=== PATIENT | female | born 1940 | race Caucasian/White ===

== ENCOUNTER 2016-04-22 07:37 | Emergency (ER) | payer MEDICARE ==
--- NOTE | 2016-04-22 08:00 | ED.PDOC ---
History of Present Illness - General Chief Complaint: GI Problem Stated Complaint: vomiting, fever Time Seen by Provider: 04/22/16 07:52 Source: patient, RN notes reviewed, Vital Signs reviewed Exam Limitations: no limitations - History of Present Illness Initial Comments: Ms. Hercules 76 y/o f with history of hypertension and thyroid disorder stated she was apparently well until 3 days ago when she had started having on and off n/v,no diarrhea no abdominal pain. No ill contact. No bowel movement for 3 days. Timing/Duration: other - 3 days ago Severity: moderate Improving Factors: nothing Worsening Factors: nothing Associated Symptoms: fever/chills Allergies/Adverse Reactions: Allergies NO KNOWN ALLERGY Allergy (Verified 04/22/16 07:56) Home Medications: Ambulatory Orders Benazepril HCl [Lotensin] 20 mg PO DAILY 04/22/16 Hydrochlorothiazide 25 mg PO DAILY 04/22/16 Levothyroxine Sodium [Levoxyl] 100 mcg PO DAILY 04/22/16 Nifedipine [Nifedipine ER] 60 mg PO DAILY 04/22/16 Review of Systems - Review of Systems Constitutional: States: chills, fever EENTM: States: no symptoms reported Respiratory: States: no symptoms reported Cardiology: States: no symptoms reported Gastrointestinal/Abdominal: States: see HPI, vomiting Genitourinary: States: no symptoms reported Endocrine: States: no symptoms reported, intolerance to heat Past Medical History (General) - Patient Medical History Hx Stroke: No Hx Congestive Heart Failure: No Hx Hypertension: Yes Hx Thyroid Disease: Yes Hx Diabetes: Yes Hx MRSA: No Surgical History: cholecystectomy Other Surgeries:: hysterectomy - Vaccination History Hx Influenza Vaccination: No Hx Pneumococcal Vaccination: No - Social History Hx Tobacco Use: No - Activities of Daily Living Patient Lives Alone: No Grooming Ability: Independent Eating (Feeding) Ability: Independent Toileting Ability: Independent - Female History Patient is a Female of Child Bearing Age (10 -59 yrs old): No Family Medical History - Family History Mother Living Status: Hx Family Diabetes: Yes - multiple family members Hx Family Cancer: Yes - breast-sister Physical Exam - Physical Exam General Appearance: Alert, Comfortable, No apparent distress Eye Exam: bilateral normal Ears, Nose, Throat: hearing grossly normal, normal ENT inspection, normal pharynx Neck: non-tender, full range of motion, supple Respiratory: chest non-tender, lungs clear, normal breath sounds, no respiratory distress Cardiovascular/Chest: normal peripheral pulses, regular rate, rhythm, no edema, no gallop, no JVD, no murmur Peripheral Pulses: radial,right: 2+ Gastrointestinal/Abdominal: normal bowel sounds, soft, no organomegaly, distended - not tense;ventral hernia with midline and ruq old surgical scars, tenderness - lower abdomen no peritoneal signs Back Exam: normal inspection, no CVA tenderness, no vertebral tenderness Extremity: normal range of motion, non-tender, normal inspection Neurologic: cane pusher II-XII nml as tested, no motor/sensory deficits, alert, normal mood/affect, oriented x 3 Skin Exam: normal color, warm/dry, cyanosis Lymphatic: no adenopathy, axilla node tender (R) Progress - Results/Orders Results/Orders: 04/22/16 08:01 URINALYSIS Stat 04/22/16 08:30 CBC (AUTOMATED) W/AUTO DIFF Stat DIFFERENTIAL,MANUAL BY FLAGS Stat Laboratory Results WBC 22.3 K/mm3 (4.8-10.8) H* 04/22/16 08:30 RBC 5.79 M/mm3 (4.20-5.40) H 04/22/16 08:30 Hgb 16.0 gm/dL (12.0-16.0) 04/22/16 08:30 Hct 49.3 % (36.0-47.0) H 04/22/16 08:30 MCV 85.2 fl (81.0-99.0) 04/22/16 08:30 MCH 27.6 pg (27.0-31.0) 04/22/16 08:30 MCHC 32.5 g/dL (33.0-37.0) L 04/22/16 08:30 RDW 14.7 % (11.5-14.5) H 04/22/16 08:30 Plt Count 283 K/mm3 (130-400) 04/22/16 08:30 MPV 9.6 fl (7.40-10.4) 04/22/16 08:30 Absolute Neuts (auto) 20.30 K/uL (1.8-6.8) H 04/22/16 08:30 Absolute Lymphs (auto) 1.00 K/uL (1.0-3.4) 04/22/16 08:30 Absolute Monos (auto) 0.90 K/uL (0.2-0.8) H 04/22/16 08:30 Absolute Eos (auto) 0.00 K/uL (0.0-0.4) 04/22/16 08:30 Absolute Basos (auto) 0.10 K/uL (0.0-0.1) 04/22/16 08:30 Neutrophils % 91.0 % (42.0-78.0) H 04/22/16 08:30 Lymphocytes % 4.4 % (20.0-50.0) L 04/22/16 08:30 Monocytes % 3.9 % (2.0-9.0) 04/22/16 08:30 Eosinophils % 0.1 % (1.0-5.0) L 04/22/16 08:30 Basophils % 0.6 % (0.0-2.0) 04/22/16 08:30 Sodium 135 mmol/L (135-145) 04/22/16 08:01 Potassium 3.3 mmol/L (3.6-5.0) L 04/22/16 08:01 Chloride 96 mmol/L (101-111) L 04/22/16 08:01 Carbon Dioxide 28 mmol/L (21-31) 04/22/16 08:01 Anion Gap 14.3 (12-18) 04/22/16 08:01 BUN 26 mg/dL (7-18) H 04/22/16 08:01 Creatinine 0.81 mg/dL (0.6-1.3) 04/22/16 08:01 BUN/Creatinine Ratio 32.1 (10-20) H 04/22/16 08:01 Random Glucose 176 mg/dL (70-105) H 04/22/16 08:01 Serum Osmolality 279.2 mOsm/L (275-295) 04/22/16 08:01 Lactic Acid 2.1 mmol/L (0.5-2.2) 04/22/16 08:06 Calcium 9.2 mg/dL (8.4-10.2) 04/22/16 08:01 Total Bilirubin 0.8 mg/dL (0.2-1.0) 04/22/16 08:01 AST 37 IU/L (10-42) 04/22/16 08:01 ALT 18 IU/L (10-60) 04/22/16 08:01 Alkaline Phosphatase 48 IU/L (42-121) 04/22/16 08:01 Serum Total Protein 7.5 gm/dL (6.4-8.2) 04/22/16 08:01 Albumin 4.2 g/dl (3.2-5.5) 04/22/16 08:01 Globulin 3.3 gm/dL (2.3-3.5) 04/22/16 08:01 Albumin/Globulin Ratio 1.3 (1.1-1.9) 04/22/16 08:01 Lipase 25 U/L (22-51) 04/22/16 08:01 04/22/16 07:50 Temperature 98.7 F Pulse Rate [ 72 Left Radial] Respiratory 20 Rate Blood Pressure 166/103 [Right Arm] O2 Sat by Pulse 94 L Oximetry AAS- air filled dilated loops of small bowel mid abdomen suspicious of sbo or ileus; Flu pcr-negative;CT abdomen/pelvisTwo vental hernias contains bowel cause of proximal bowel obstruction. Departure - Departure Clinical Impression: Small intestine obstruction, Ventral hernia with bowel obstruction Adrenal adenoma Qualifiers: Laterality: unspecified laterality Qualifier Code: (D35.00) Benign neoplasm of unspecified adrenal gland Time of Disposition: 11:22 - D/W Dr. Winston Workman- [facility] Disposition: Transfer to Hospital Condition: Good Departure Forms: ED Discharge - Pt. Copy, Patient Portal Self Enrollment Referrals: JANE JEONG DO [Primary Care Provider] - 1-2 Weeks Home Medications: Ambulatory Orders Benazepril HCl [Lotensin] 20 mg PO DAILY 04/22/16 Hydrochlorothiazide 25 mg PO DAILY 04/22/16 Levothyroxine Sodium [Levoxyl] 100 mcg PO DAILY 04/22/16 Nifedipine [Nifedipine ER] 60 mg PO DAILY 04/22/16
[2016-04-22] MEDS ORDERED: ONDANSETRON INJ 4 MG/2 ML VIAL IV ONE ×2 (08:01→09:50)
--- NOTE | 2016-04-22 08:51 | RAD ---
EXAM DESCRIPTION: XR ABDOMEN 2 VIEWS SUPINE ERECT CLINICAL HISTORY: vomiting COMPARISON: None. FINDINGS: AP supine and upright views of the abdomen show a nonspecific, nonobstructive bowel gas pattern with no evidence for free intraperitoneal air. Surgical clips from cholecystectomy are seen. There are air-filled dilated loops of small bowel in the central abdomen. There is some air in stool in the hepatic flexure of the colon. Air densities overlying the left lower quadrant soft tissue lateral to the osseous structures is seen. No obvious organomegaly is seen. No abnormal calcifications are seen in the expected location of the renal collecting systems. Single view of the chest shows cardiac silhouette and pulmonary vasculature to be within normal limits. Lungs are normally aerated and clear. Moderate calcifications and mild ectasia of the thoracic aortic arch are seen. Severe disc degenerative changes of the lumbar spine are noted. IMPRESSION: Air-filled dilated loops of small bowel in the central abdomen are suspicious for at least partial small bowel obstruction versus ileus. Air densities in the soft tissue lateral to the osseous structures in the left lower abdomen to pelvis could represent large pannus versus possible abdominal wall hernia. Correlate clinically. Electronically signed by: Augustus Shipman MD 04/22/2016 08:50
[2016-04-22] MEDS ORDERED: SODIUM CHLORIDE 0.9% 500ML 500 ML IVS ONE (09:28)
--- NOTE | 2016-04-22 10:28 | CT ---
EXAM DESCRIPTION: CT ABDOMEN PELVIS WITHOUT IV CONTRAST CLINICAL HISTORY: vomiting COMPARISON: None. TECHNIQUE: Transaxial images were obtained without intravenous or oral contrast media. Sagittal and coronal reconstruction was performed. FINDINGS: The lung bases are clear. Coronary artery calcification is observed. Mild hepatic steatosis is observed. The gallbladder is been previously removed. Surgical clips are seen in the region of the gallbladder fossa. A 1.75 cm in diameter left adrenal mass is observed. A 2nd fatty mass is observed along the inferior aspect of the left adrenal gland measuring 3.3 cm in diameter. Its appearance is consistent with adrenal adenoma. No right adrenal masses are detected. A central ventral hernia is observed containing fat. It has a wide-mouth. A 2nd ventral hernia is observed inferior to the umbilicus. It contains bowel and fat. Exam reveals some distention of the stomach and proximal small bowel. There is narrowing of a loop of small bowel at the level of the inferior ventral hernia surgical ryan are observed in the region of the hernia. No free fluid is observed in the pelvis. The patient is post hysterectomy. Diverticulosis of the colon is observed without evidence of diverticulitis. Imaging of the kidneys reveals no evidence of hydronephrosis mass cyst or calcification. IMPRESSION: 1. Two ventral hernias are observed. The more inferior ventral hernia contains bowel and is felt to be the cause of a proximal small bowel obstruction. 2. Cholecystectomy. 3. Hepatic steatosis. 4. 2 left adrenal mass is are observed. One is larger and consistent with an adrenal adenoma. The smaller of the 2 could be evaluated with pre and post-contrast CT or magnetic resonance imaging. 5. Uncomplicated diverticulosis. 6. Hysterectomy Electronically signed by: Carroll Briggs MD 04/22/2016 10:26
[2016-04-22 12:29] VITALS: TEMP 99.5
--- NOTE | 2016-04-22 13:13 | RAD ---
EXAM DESCRIPTION: XR CHEST 1 VIEW CLINICAL HISTORY: post ng insertion COMPARISON: 22 April 2016. TECHNIQUE: AP portable chest FINDINGS: A poor inspiratory effect is observed. Nasogastric tube is seen to traverse the chest. The distal tip is observed in the region of the body of the stomach. The heart is within the range of normal. No pleural fluid is seen. Degenerative changes are seen in the thoracic spine. IMPRESSION: A nasogastric tube is seen to traverse the chest with the distal tip in the region the body of the stomach. Electronically signed by: Carroll Briggs MD 04/22/2016 13:11
[2016-04-22 14:00] VITALS: BP 145/83; O2SAT 94
== END 2016-04-22 13:55 | disposition short-term general hospital (02) ==
LOC: ER 07:37
DX: K43.6 Other and unspecified ventral hernia with obstruction, without gangrene (principal); D35.00 Benign neoplasm of unspecified adrenal gland; I10 Essential (primary) hypertension; E11.9 Type 2 diabetes mellitus without complications; E07.9 Disorder of thyroid, unspecified; Z79.899 Other long term (current) drug therapy
CPT/HCPCS: 36415; 71010; 74020; 74176; 80053; 83605; 83690; 85025; 87040; 87804; J2405; J7040

== ENCOUNTER 2016-04-26 18:53 | Emergency (ER) | payer MEDICARE ==
--- NOTE | 2016-04-26 19:12 | ED.PDOC ---
History of Present Illness - General Chief Complaint: Abdominal Pain Stated Complaint: Abd pain with nausea and vomiting Time Seen by Provider: 04/26/16 18:54 Information Source: patient, RN notes reviewed, Vital Signs reviewed, family, old records Exam Limitations: no limitations - History of Present Illness Initial Comments: Patient started again with abd pain and vomiting about 2pm today. She was seen here on 04/22/16 and diagnosed with a SBO. She was transferred to [facility] for further management. Reports her pain, nausea and vomiting improved. She was tolerating liquids and having bowel movements. She was discharged from the hospital around noon today. Abdominal Pain Onset Location: generalized abdomen, flank Pain Radiation: no radiation Quality: severe, cramping, sharpness, waxing/waning Timing/Duration: 1-3 hours Improving Factors: nothing Worsening Factors: nothing Associated Symptoms: back pain, fatigue, nausea/vomiting Review of Systems - Review of Systems Constitutional: States: malaise. Denies: chills, diaphoresis, fever EENTM: States: no symptoms reported Respiratory: States: no symptoms reported Cardiology: States: no symptoms reported Gastrointestinal/Abdominal: States: see HPI, abdominal pain, nausea, vomiting Genitourinary: States: no symptoms reported Musculoskeletal: States: back pain Skin: States: no symptoms reported Neurological: States: no symptoms reported Endocrine: States: no symptoms reported Past Medical History (General) - Patient Medical History Hx Stroke: No Hx Congestive Heart Failure: No Hx Hypertension: Yes Hx Thyroid Disease: Yes Hx Diabetes: Yes Hx MRSA: No - Vaccination History Hx Influenza Vaccination: No Hx Pneumococcal Vaccination: No - Social History Hx Tobacco Use: No Family Medical History - Family History Mother Living Status: Hx Family Diabetes: Yes - multiple family members Hx Family Cancer: Yes - breast-sister Physical Exam - Physical Exam General Appearance: Alert, No apparent distress, Ill Appearing, Obese, Well Developed, Well Groomed, Well Hydrated, Well Nourished Neck: non-tender, full range of motion, supple, normal inspection Respiratory: chest non-tender, lungs clear, normal breath sounds, no respiratory distress, no accessory muscle use Cardiovascular/Chest: regular rate, rhythm, no edema, no gallop, no JVD, no murmur Gastrointestinal/Abdominal: abnormal bowel sounds - Hyperactive, distended, guarding - in epigastric area, tenderness, other - Lower abd is distended and firm Extremity: normal range of motion, non-tender, normal inspection Neurologic: no motor/sensory deficits, alert, normal mood/affect, oriented x 3 Skin Exam: normal color, warm/dry Lymphatic: no adenopathy Progress - Progress Progress: 04/26/16 21:04 Patient with repeat SBO. with edema and ascites. At risk for perf and ischemia. Discussed with Dr. Narinder fry. transfer back to [facility] for definitive care. Will place NGT Patient and family agree with transfer back to [facility]. 04/26/16 21:06 Awaiting call back from [facility] - Results/Orders Results/Orders: Laboratory Tests 04/26/16 19:15 WBC 12.8 H RBC 4.95 Hgb 13.6 Hct 42.9 MCV 86.6 MCH 27.5 MCHC 31.8 L RDW 14.9 H Plt Count 222 MPV 10.1 Absolute Neuts (auto) 10.90 H Absolute Lymphs (auto) 1.00 Absolute Monos (auto) 0.70 Absolute Eos (auto) 0.10 Absolute Basos (auto) 0.10 Neutrophils % 85.1 H Lymphocytes % 8.0 L Monocytes % 5.4 Eosinophils % 0.8 L Basophils % 0.7 Sodium 140 Potassium 4.7 Chloride 107 Carbon Dioxide 28 Anion Gap 9.7 L BUN 8 Creatinine 0.67 BUN/Creatinine Ratio 11.9 Random Glucose 128 H Serum Osmolality 279.4 Calcium 8.7 Total Bilirubin 0.9 AST 37 ALT 50 Alkaline Phosphatase 46 Serum Total Protein 6.9 Albumin 3.7 Globulin 3.2 Albumin/Globulin Ratio 1.2 - EKG/XRAY/CT CT Ordered: Yes CT Interpretation Call Back: Yes - Per Radiology - repeat SBO at prox ileum w/ edema & ascites. Departure - Departure Clinical Impression: Small intestine obstruction, Ventral hernia with bowel obstruction Time of Disposition: 21:49 Disposition: Transfer to Hospital Condition: Fair Home Medications: Ambulatory Orders Benazepril HCl [Lotensin] 20 mg PO DAILY 04/22/16 Hydrochlorothiazide 25 mg PO DAILY 04/22/16 Levothyroxine Sodium [Levoxyl] 100 mcg PO DAILY 04/22/16 Nifedipine [Nifedipine ER] 60 mg PO DAILY 04/22/16 Amoxicillin & Pot Clavulanate [Augmentin] 875 mg PO BID 04/26/16 Docusate Sodium [Colace Cap] 100 mg PO 04/26/16 Magnesium Hydroxide [Milk Of Magnesia] 1 evin PO 04/26/16 Transfer to Outside Facility - Transfer Information Accepting Provider:: Dr. Nicole Accepting Facility: [facility] Reason for Transfer: specialized care not available
[2016-04-26] MEDS ORDERED: ONDANSETRON INJ 4 MG/2 ML VIAL IV ONE (19:18)
[2016-04-26] MEDS ORDERED: HYDROmorphone HCL INJ 2 MG/ML VIAL IV ONE (20:41)
[2016-04-26 21:49] VITALS: O2SAT 97
[2016-04-26 22:27] VITALS: BP 158/77; TEMP 98.6
--- NOTE | 2016-05-11 00:07 | CT ---
EXAM DESCRIPTION: Abdomen/Pelvis w/Contrast CLINICAL HISTORY: 76 years Female, generalized abd pain, N/V, recent SBO COMPARISON: CT scan of the abdomen and pelvis without contrast dated 04/22/2016. TECHNIQUE: 5 mm axial images through the abdomen and pelvis were performed after the administration of intravenous contrast. Coronal and sagittal reconstructions were obtained. FINDINGS: Similar to the prior study, the stomach is fluid-filled and distended. Loops of small bowel are dilated. An acute transition point occurs within the loop of ileum as it passes into the more ventrally located of the two anterior abdominal wall hernias (axial image 63). The transition point is acute and there is some surrounding edema along with edema and ascites within the large ventral hernia. Multiple loops of ileum reside within the hernia and some of these are distended. The exiting loop is decompressed. No extraluminal gas is seen. A more superiorly located ventral midline hernia contains only fat (image 49). Imaged lungs are clear. Vascular calcifications are present with aortic and marked coronary artery involvement. No pericardial or pleural effusion. Previous cholecystectomy. Postcontrast images of the liver, spleen, RIGHT kidney, RIGHT adrenal gland and atrophic pancreas are unremarkable. Redemonstrated are the two LEFT adrenal gland lesions, the larger of which contains internal fat consistent with a myelolipoma. The smaller measures 2.2 cm in diameter (image 31) with Hounsfield units averaging in the 20s. Delayed images are not available. A 5 mm hypoattenuating lesion in the interpolar region of the LEFT kidney is too small for definitive characterization but has the appearance of a cyst. Noninflamed diverticuli project off the colon. Nonvisualized appendix. No free fluid in the pelvis. No bladder calculus. IMPRESSION: Small bowel obstruction with an acute transition point as a loop of proximal ileum passes into the more inferiorly located ventral hernia. Reactive edema and ascites. Reduction is recommended as the patient is at risk for perforation and venous ischemia. The stomach is also distended suggesting the patient may benefit from placement of a nasogastric tube to suction. LEFT adrenal myolipoma and additional 2.2 cm LEFT adrenal gland lesion, incompletely characterized. If the patient has a known primary malignancy and if clinically indicated, a nonemergent contrast enhanced examination with 10-15 minute delayed images through the adrenal glands can be obtained to differentiate an adenoma from a metastasis. Aortic atherosclerosis and coronary artery disease. Diverticulosis. Fat-containing ventral hernia. Electronically signed by: Evie Royal MD 04/26/2016 8:48 PM FACILITIES DIRECTOR
== END 2016-04-26 22:25 | disposition short-term general hospital (02) ==
LOC: ER 18:53
DX: K43.6 Other and unspecified ventral hernia with obstruction, without gangrene (principal); R11.2 Nausea with vomiting, unspecified; E11.9 Type 2 diabetes mellitus without complications; I10 Essential (primary) hypertension; E07.9 Disorder of thyroid, unspecified
CPT/HCPCS: 74177; 80053; 85025; J1170; J2405

== ENCOUNTER → 2016-07-15 | Outpatient (CLI) | payer MEDICARE | LOC: BFHH 11:46 | PROVIDERS: ATTEND Family Medicine | DX: G72.89 Other specified myopathies (principal); I10 Essential (primary) hypertension; E66.01 Morbid (severe) obesity due to excess calories; Z68.41 Body mass index [BMI] 40.0-44.9, adult; Z48.815 Encounter for surgical aftercare following surgery on the digestive system ==

== ENCOUNTER → 2017-01-01 | Outpatient (CLI) | payer MEDICARE | LOC: BFHH 12:53 | PROVIDERS: ATTEND Family Medicine | DX: E03.9 Hypothyroidism, unspecified (principal) ==

== ENCOUNTER → 2017-06-10 | Outpatient (CLI) | payer MEDICARE | LOC: BFHH 12:41 | PROVIDERS: ATTEND Family Medicine | DX: I10 Essential (primary) hypertension (principal); E03.9 Hypothyroidism, unspecified ==

== ENCOUNTER → 2018-08-30 | Outpatient (CLI) | payer MEDICARE | LOC: LAB.NP 12:15 | PROVIDERS: ATTEND Family Medicine | DX: E03.9 Hypothyroidism, unspecified (principal); I10 Essential (primary) hypertension ==

== ENCOUNTER 2019-03-10 09:07 | Emergency (ER) | payer MEDICARE ==
--- NOTE | 2019-03-10 09:41 | ED.PDOC ---
History of Present Illness - General Chief Complaint: Fever Stated Complaint: fever, weakness Time Seen by Provider: 03/10/19 09:14 Source: patient, RN notes reviewed, Vital Signs reviewed, family Additional Information: Patient presents with family for evaluation of fever, cough and congestion over the past three days. She has had vomiting and diarrhea during this time span. Patient does endorse dysuria, which resolved with increased water intake. She denies any recent sick contacts. Cough has been productive with white sputum. No motrin or tylenol today. Denies recent abx or hospitalizations. She otherwise has been more fatigued. - History of Present Illness Timing/Duration: getting worse Fever Severity/Quality: subjective Fever Therapy EVALUATION SPECIALIST: none Associated Symptoms: cough Review of Systems - Review of Systems Constitutional: States: fever EENTM: States: nose congestion Respiratory: States: cough Cardiology: Denies: chest pain Gastrointestinal/Abdominal: States: diarrhea, nausea, vomiting Genitourinary: States: dysuria Musculoskeletal: Denies: back pain Skin: Denies: rash Neurological: Denies: headache Endocrine: Denies: increased thirst Hematologic/Lymphatic: Denies: anemia Past Medical History (General) - Patient Medical History Hx Stroke: No Hx Congestive Heart Failure: No Hx Hypertension: Yes Hx Thyroid Disease: Yes Hx Diabetes: Yes Hx Gastroesophageal Reflux: Yes Hx MRSA: No - Vaccination History Hx Influenza Vaccination: No Hx Pneumococcal Vaccination: No - Social History Hx Tobacco Use: No Hx Alcohol Use: No Family Medical History - Family History Mother Living Status: Hx Family Diabetes: Yes - multiple family members Hx Family Cancer: Yes - breast-sister Physical Exam - Physical Exam General Appearance: Alert, Comfortable, Well Developed, Well Groomed, Well Hydrated, Well Nourished ENT Exam: nasal congestion Neck: full range of motion, supple, normal inspection, trachea midline Respiratory: lungs clear, normal breath sounds, no respiratory distress, no accessory muscle use Cardiovascular/Chest: normal peripheral pulses, regular rate, rhythm, no edema, no gallop Gastrointestinal/Abdominal: normal bowel sounds, non tender, soft, distended Extremity: normal range of motion, non-tender, normal inspection, no pedal edema 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 Influenza screen was negative. CMP was significant for signs of dehydration with pre-renal azotemia. She was given 500cc bolus of NS. Lactate was WNL. Blood cultures were obtained. She was found to have a leukocytosis, likely from infection vs hemoconcentration. CXR was concerning for possible developing pneumonia.x-ray of the abdomen was concerning for possible small bowel obstruction. CT of the abdomen was obtained and significant for signs of small bowel obstruction. Her previous surgery was in [place]. Patient was discussed with Dr. Bolanos, who accepted patient. Patient was given 4.5g IV Zosyn. NG tube was placed and patient was transferred for surgical evaluation. 03/10/19 09:43 Ordered lab work. Discussed plan of care. 03/10/19 12:[address] Previous surgeon in [place]. Family looking for name of previous surgeon. Will order Zosyn. 03/10/19 12:[address] Bolanos at [facility]. Accepts patient. Requested NG tube prior to transfer. - Results/Orders Results/Orders: 03/10/19 09:42 URINALYSIS Stat 03/10/19 09:48 BLOOD CULTURE Stat 03/10/19 10:38 Hold Metformin x 48Hrs [id number] 03/10/19 12:37 Piperacillin/Tazobactam [Zosyn] 4.5 gm Sodium Chloride 0.9% 100Ml [NS (NACL 0.9%) 100ml] 100 ml IVPB ONCE 03/10/19 12:47 NG [Tube(s):Nasogastric,Insertion] PRN Laboratory Results WBC 15.5 K/mm3 (4.8-10.8) H 03/10/19 09:48 RBC 5.23 M/mm3 (4.20-5.40) 03/10/19 09:48 Hgb 14.4 gm/dL (12.0-16.0) 03/10/19 09:48 Hct 44.8 % (36.0-47.0) 03/10/19 09:48 MCV 85.5 fl (81.0-99.0) 03/10/19 09:48 MCH 27.6 pg (27.0-31.0) 03/10/19 09:48 MCHC 32.3 g/dL (33.0-37.0) L 03/10/19 09:48 RDW 15.0 % (11.5-14.5) H 03/10/19 09:48 Plt Count 243 K/mm3 (130-400) 03/10/19 09:48 MPV 9.8 fl (7.40-10.4) 03/10/19 09:48 Absolute Neuts (auto) 14.00 K/uL (1.8-6.8) H 03/10/19 09:48 Absolute Lymphs (auto) 0.80 K/uL (1.0-3.4) L 03/10/19 09:48 Absolute Monos (auto) 0.50 K/uL (0.2-0.8) 03/10/19 09:48 Absolute Eos (auto) 0.00 K/uL (0.0-0.4) 03/10/19 09:48 Absolute Basos (auto) 0.10 K/uL (0.0-0.1) 03/10/19 09:48 Neutrophils % 90.4 % (42.0-78.0) H 03/10/19 09:48 Lymphocytes % 5.4 % (20.0-50.0) L 03/10/19 09:48 Monocytes % 3.6 % (2.0-9.0) 03/10/19 09:48 Eosinophils % 0.0 % (1.0-5.0) L 03/10/19 09:48 Basophils % 0.6 % (0.0-2.0) 03/10/19 09:48 Sodium 135 mmol/L (135-145) 03/10/19 09:48 Potassium 4.2 mmol/L (3.6-5.0) 03/10/19 09:48 Chloride 97 mmol/L (101-111) L 03/10/19 09:48 Carbon Dioxide 26 mmol/L (21-31) 03/10/19 09:48 Anion Gap 16.2 (12-18) 03/10/19 09:48 BUN 19 mg/dL (7-18) H 03/10/19 09:48 Creatinine 0.76 mg/dL (0.6-1.3) 03/10/19 09:48 BUN/Creatinine Ratio 25.0 (10-20) H 03/10/19 09:48 Random Glucose 142 mg/dL (70-105) H 03/10/19 09:48 Serum Osmolality 274.8 mOsm/L (275-295) L 03/10/19 09:48 Lactic Acid 1.8 mmol/L (0.5-2.2) 03/10/19 09:48 Calcium 9.1 mg/dL (8.4-10.2) 03/10/19 09:48 Total Bilirubin 1.0 mg/dL (0.2-1.0) 03/10/19 09:48 AST 24 IU/L (10-42) 03/10/19 09:48 ALT 13 IU/L (10-60) 03/10/19 09:48 Alkaline Phosphatase 37 IU/L (42-121) L 03/10/19 09:48 Serum Total Protein 6.9 gm/dL (6.4-8.2) 03/10/19 09:48 Albumin 3.7 g/dl (3.2-5.5) 03/10/19 09:48 Globulin 3.2 gm/dL (2.3-3.5) 03/10/19 09:48 Albumin/Globulin Ratio 1.2 (1.1-1.9) 03/10/19 09:48 Reporting MD: Tigre Mcfadden Joint Cutter date: Dictation date: 4 Radiographs of the Abdomen. Indication: Vomiting, diarrhea. Hx of SBO Comparison: None. Impression: Multiple surgical clips right upper quadrant. Multiple calcific densities the lateral quadrant, likely reflect ingested material in the stomach. No free air. Multiple loops of dilated small bowel measuring up to 4.5 cm concern for small bowel obstruction. CT could better evaluate. Surgical clips in the pelvis noted. No abnormal calcifications. No acute osseous abnormality. Reporting MD: Tigre Mcfadden Joint Cutter date: Dictation date: Study: CT abdomen and pelvis. Indication: N/V/D. Assess for SBO. Technique: Venous phase CT imaging of the abdomen and pelvis obtained after intravenous administration of contrast. This exam was performed according to our departmental dose- optimization program, which includes automated exposure control, adjustment of the mA and/or kV according to patient size and/or use of iterative reconstruction technique. Comparison: April 27, 2016. Findings: Examination is technically limited as the entirety of the anterior abdominal wall and cavity is not included within the field of view due to body habitus. In addition there is streak artifact from the patient's arms. Cardiomegaly. Lung bases clear. Cholecystomy clips. Liver, pancreas, spleen, right adrenal gland, kidneys, bladder demonstrate a stable appearance. Uterus and ovaries are surgically absent or small. 3.1 cm indeterminate left adrenal gland nodule with Hounsfield units of 51. Previously it measured 2.2 cm. 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 Diastases of the anterior abdominal wall noted with the kelly rity of the small bowel, colon, and omentum displaced through this defect into the anterior sac. A significant portion of this is not visualized within the field of view. Anastomotic suture noted in the distal small bowel on axial image 59. A transition point suspected at this site with a proximal high grade mechanical small bowel obstruction. Small bowel measure up to 5 cm diameter. No pneumatosis. No free air. Trace free fluid. Stomach unremarkable. Colonic diverticulosis. Atherosclerotic aorta. No pathologically enlarged lymphadenopathy. Degenerative changes of the spine noted. Impression: Limited examination as the entirety of the anterior abdominal wall cavity is not included in the [id number] due to body habitus. Persistent diastases of the anterior abdominal/pelvic wall with a recurrent high-grade mechanical small bowel obstruction. A transition point likely present at a site of anastomotic suture. General surgery consultation highly advised. Trace free pelvic fluid. Enlarging 3 cm left adrenal gland nodule. This likely reflects an adenoma. Further characterization with chemical shift MRI of the adrenal glands versus adrenal gland washout CT with and without IV contrast recommended. Additional findings as above. Electronically signed by: Tigre Mcfadden MD 03/10/2019 12:02 PM LIFE SCIENCES MANAGER Reporting MD: Dieudonne Riley Joint Cutter date: Dictation date: EXAM DESCRIPTION: Chest,2 Views CLINICAL HISTORY: 79 years Female, Cough COMPARISON: 04/22/2016 Findings: Two images Cardiomegaly. No pulmonary vascular congestion. No pneumothorax no pleural effusion. Left lower lobe patchy airspace disease. The right lung is clear. Atherosclerotic plaque in the thoracic aorta. No acute osseous abnormality. IMPRESSION: Patchy left lower lobe airspace di sease, atelectasis or pneumonia. Recommend repeat chest radiographs in six weeks. Electronically signed by: Dieudonne Riley MD 03/10/2019 10:34 AM LIFE SCIENCES MANAGER Departure - Departure Clinical Impression: SBO (small bowel obstruction), Dehydration, Leukocytosis Pneumonia Qualifiers: Pneumonia type: due to unspecified organism Laterality: left Lung location: lower lobe of lung Qualified Code(s): J18.9 - Pneumonia, unspecified organism Disposition: Transfer to Hospital Condition: Fair Departure Forms: ED Discharge - Pt. Copy, Patient Portal Self Enrollment Referrals: Frantz Kinsey MD [Primary Care Provider] - 1-2 Weeks Home Medications: Ambulatory Orders Hydrochlorothiazide 25 mg PO DAILY 04/22/16 Levothyroxine Sodium [Levoxyl] 100 mcg PO DAILY 04/22/16 Nifedipine [Nifedipine ER] 60 mg PO DAILY 04/22/16 Benazepril HCl [Lotensin] 20 mg PO DAILY 03/10/19 Comments: Nam Vargas D.O. Ruby #[id number]
[2019-03-10] MEDS ORDERED: SODIUM CHLORIDE 0.9% 500ML 500 ML IVS ONE (10:19)
--- NOTE | 2019-03-10 10:35 | RAD ---
4 Radiographs of the Abdomen. Indication: Vomiting, diarrhea. Hx of SBO Comparison: None. Impression: Multiple surgical clips right upper quadrant. Multiple calcific densities the lateral quadrant, likely reflect ingested material in the stomach. No free air. Multiple loops of dilated small bowel measuring up to 4.5 cm concern for small bowel obstruction. CT could better evaluate. Surgical clips in the pelvis noted. No abnormal calcifications. No acute osseous abnormality. Electronically signed by: Tigre Mcfadden MD 03/10/2019 10:34 AM [facility]
--- NOTE | 2019-03-10 10:36 | RAD ---
EXAM DESCRIPTION: Chest,2 Views CLINICAL HISTORY: 79 years Female, Cough COMPARISON: 04/22/2016 Findings: Two images Cardiomegaly. No pulmonary vascular congestion. No pneumothorax no pleural effusion. Left lower lobe patchy airspace disease. The right lung is clear. Atherosclerotic plaque in the thoracic aorta. No acute osseous abnormality. IMPRESSION: Patchy left lower lobe airspace disease, atelectasis or pneumonia. Recommend repeat chest radiographs in six weeks. Electronically signed by: Dieudonne Riley MD 03/10/2019 10:34 AM [facility]
[2019-03-10] MEDS ORDERED: PROMETHAZINE HCL INJ 12.5 MG in SODIUM CHLORIDE 0.9% 50ML 50 ML IVPB ONE (10:45)
[2019-03-10] MEDS ORDERED: PROMETHAZINE HCL INJ 25 MG/ML VIAL ONE (10:46)
[2019-03-10] MEDS ORDERED: SODIUM CHLORIDE 0.9% 50ML 50 ML ONE (10:47)
[2019-03-10 10:56] VITALS: O2SAT 96
--- NOTE | 2019-03-10 12:04 | CT ---
Study: CT abdomen and pelvis. Indication: N/V/D. Assess for SBO. Technique: Venous phase CT imaging of the abdomen and pelvis obtained after intravenous administration of contrast. This exam was performed according to our departmental dose-optimization program, which includes automated exposure control, adjustment of the mA and/or kV according to patient size and/or use of iterative reconstruction technique. Comparison: April 27, 2016. Findings: Examination is technically limited as the entirety of the anterior abdominal wall and cavity is not included within the field of view due to body habitus. In addition there is streak artifact from the patient's arms. Cardiomegaly. Lung bases clear. Cholecystomy clips. Liver, pancreas, spleen, right adrenal gland, kidneys, bladder demonstrate a stable appearance. Uterus and ovaries are surgically absent or small. 3.1 cm indeterminate left adrenal gland nodule with Hounsfield units of 51. Previously it measured 2.2 cm. 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 Diastases of the anterior abdominal wall noted with the majority of the small bowel, colon, and omentum displaced through this defect into the anterior sac. A significant portion of this is not visualized within the field of view. Anastomotic suture noted in the distal small bowel on axial image 59. A transition point suspected at this site with a proximal high grade mechanical small bowel obstruction. Small bowel measure up to 5 cm diameter. No pneumatosis. No free air. Trace free fluid. Stomach unremarkable. Colonic diverticulosis. Atherosclerotic aorta. No pathologically enlarged lymphadenopathy. Degenerative changes of the spine noted. Impression: Limited examination as the entirety of the anterior abdominal wall cavity is not included in the [id number] due to body habitus. Persistent diastases of the anterior abdominal/pelvic wall with a recurrent high-grade mechanical small bowel obstruction. A transition point likely present at a site of anastomotic suture. General surgery consultation highly advised. Trace free pelvic fluid. Enlarging 3 cm left adrenal gland nodule. This likely reflects an adenoma. Further characterization with chemical shift MRI of the adrenal glands versus adrenal gland washout CT with and without IV contrast recommended. Additional findings as above. Electronically signed by: Tigre Mcfadden MD 03/10/2019 12:02 PM BATTERY ASSEMBLER
[2019-03-10] MEDS ORDERED: PIPERACILLIN/TAZOBACTAM 4.5 GM in SODIUM CHLORIDE 0.9% 100ML 100 ML IVPB ONE (12:37)
[2019-03-10] MEDS ORDERED: SODIUM CHLORIDE 0.9% 100ML 100 ML IVPB ONE (12:43)
[2019-03-10] MEDS ORDERED: PIPERACILLIN/TAZOBACTAM 2.25 GM VIAL IVPB ONE ×2 (12:43→13:06)
[2019-03-10] MEDS ORDERED: LIDOCAINE 2 % GEL 5 ML TUBE TOP ONE (13:15)
[2019-03-10 13:31] VITALS: TEMP 97.9
[2019-03-10 13:32] VITALS: BP 149/86
== END 2019-03-10 13:31 | disposition short-term general hospital (02) ==
LOC: ER 09:07
DX: J18.9 Pneumonia, unspecified organism (principal); E86.0 Dehydration; K56.699 Other intestinal obstruction unspecified as to partial versus complete obstruction; D72.829 Elevated white blood cell count, unspecified; K57.30 Diverticulosis of large intestine without perforation or abscess without bleeding; K21.9 Gastro-esophageal reflux disease without esophagitis; I10 Essential (primary) hypertension; E07.9 Disorder of thyroid, unspecified; E11.9 Type 2 diabetes mellitus without complications
CPT/HCPCS: 36415; 71046; 74019; 74177; 80053; 81001; 83605; 85025; 87040; 87077; 87086; 87186; 87502; A4216; J2543; J2550; J7040; J7050

== ENCOUNTER → 2019-06-29 | Outpatient (CLI) | payer MEDICARE | LOC: BFHH 09:31 | PROVIDERS: ATTEND Family Medicine | DX: I48.20 Chronic atrial fibrillation, unspecified (principal); I10 Essential (primary) hypertension; E03.9 Hypothyroidism, unspecified; R22.43 Localized swelling, mass and lump, lower limb, bilateral; G72.89 Other specified myopathies ==

== ENCOUNTER 2019-07-04 16:07 | Emergency (ER) | payer MEDICARE ==
[2019-07-04] MEDS ORDERED: SODIUM CHLORIDE 0.9% (FLUSH) 10 ML SYG IV PRN (16:51)
[2019-07-04 17:00] VITALS: TEMP 97.7
--- NOTE | 2019-07-04 17:18 | ED.PDOC ---
History of Present Illness - General Chief Complaint: Respiratory Problem Stated Complaint: shortness of breath, leg pain and weeping Time Seen by Provider: 07/04/19 16:51 Source: patient, RN notes reviewed, Vital Signs reviewed, family - Daughter Exam Limitations: no limitations - History of Present Illness Initial Comments: Patient is a 79-year-old white female who presents from home with complaints of bradycardia in the 30s, dizziness and palpitations. Additionally patient has been mildly short of breath and just recently had a medication regimen changed by her physician to increase her diuresis. Patient states that the home health nurse noted that she was bradycardic in the 30s and stayed with her and insisted that she go to the emergency department. When she arrived here the patient's heart rate was in the 40s. Patient denies any chest pain, nausea, vomiting or diarrhea. She had some mild dizziness with associated shortness of breath. Patient is unsure what caused the bradycardia in the past. She feels better now that she is here in the department. Timing/Duration: 1-3 hours Severity: moderate Improving Factors: nothing Worsening Factors: nothing Associated Symptoms: nausea/vomiting - Nausea only, shortness of breath - Shor tness of breath was mild. Allergies/Adverse Reactions: Allergies NO KNOWN ALLERGY Allergy (Verified 04/22/16 07:56) Home Medications: Ambulatory Orders Apoaequorin [Prevagen Extra Strength] 10 mg PO DAILY 07/04/19 Benazepril HCl [Lotensin] 20 mg PO DAILY 07/04/19 Cholecalciferol [Vitamin D3] 1,000 unit PO DAILY 07/04/19 Dabigatran Etexilate Mesylate [Pradaxa] 150 mg PO BID 07/04/19 Furosemide [Lasix] 40 mg PO DAILY 07/04/19 Ibuprofen 400 mg PO Q6H PRN 07/04/19 Levothyroxine Sodium 125 mcg PO DAILY 07/04/19 Metolazone 10 mg PO DAILY 07/04/19 Metoprolol Succinate [Metoprolol Succinate ER] 25 mg PO BID 07/04/19 Nifedipine [Procardia Xl] 60 mg PO DAILY 07/04/19 Polyethylene Glycol 3350 [Miralax] 17 gm PO DAILY 07/04/19 Pomegranate (Punica Granatum) [Pomegranate Extract] 250 mg PO DAILY 07/04/19 Potassium Gluconate 550 mg PO DAILY 07/04/19 Probiotic Product [Probiotic] 1 tab PO DAILY 07/04/19 Review of Systems - Review of Systems Constitutional: States: no symptoms reported, see HPI. Denies: chills, fever, malaise EENTM: States: no symptoms reported. Denies: eye pain, blurred vision, double vision Respiratory: States: see HPI, short of breath. Denies: cough, stridor, wheezing Cardiology: States: see HPI, palpitations - Patient with bradycardia. Gastrointestinal/Abdominal: States: see HPI, nausea. Denies: abdominal pain, diarrhea Genitourinary: States: no symptoms reported Musculoskeletal: States: no symptoms reported. Denies: back pain, neck pain Skin: States: no symptoms reported. Denies: change in color, rash Neurological: States: no symptoms reported. Denies: headache, paresthesia, weakness Endocrine: States: no symptoms reported Hematologic/Lymphatic: States: no symptoms reported All other Systems: Reviewed and Negative, No Change from Baseline Past Medical History (General) - Patient Medical History Hx Stroke: No Hx Congestive Heart Failure: No Hx Hypertension: Yes Hx Thyroid Disease: Yes Hx Diabetes: Yes Hx Gastroesophageal Reflux: Yes Hx MRSA: No Surgical History: cholecystectomy, Hysterectomy, other - Vaccination History Hx Influenza Vaccination: No Hx Pneumococcal Vaccination: No - Social History Hx Tobacco Use: No Hx Alcohol Use: No Family Medical History - Family History Mother Living Status: Hx Family Diabetes: Yes - multiple family members Hx Family Cancer: Yes - breast-sister Physical Exam - Physical Exam General Appearance: Alert, Comfortable, Well Developed, Well Groomed, Well Hydrated, Well Nourished Eye Exam: bilateral normal Ears, Nose, Throat: hearing grossly normal, normal pharynx Neck: non-tender, full range of motion, supple, normal inspection Respiratory: chest non-tender, lungs clear, no respiratory distress, no accessory muscle use, rales - In the bases bilaterally Cardiovascular/Chest: normal peripheral pulses, no gallop, no murmur, bradycardia, other - Patient with peripheral edema in the lower extremities. 1+ to the knees bilaterally. Peripheral Pulses: radial,right: 2+, radial,left: 2+ Gastrointestinal/Abdominal: normal bowel sounds, non tender, distended Back Exam: normal inspection, no CVA tenderness, no vertebral tenderness Extremity: normal range of motion, non-tender, pedal edema Neurologic: sprayer insecticide II-XII nml as tested, no motor/sensory deficits, alert, normal mood/affect, oriented x 3 Skin Exam: normal color, warm/dry Lymphatic: no adenopathy Progress - Progress Progress: Differential diagnosis: CHF exacerbation, cardiac dysrhythmia, electrolyte abnormality, unstable angina among others. 07/04/19 19:28 Labs were relatively unremarkable except for an elevated BNP. EKG does not show any acute ischemia. Chest x-ray shows volume overload. Patient feeling much better here in the ED and no recurrent symptoms of bradycardia. Patient desires discharge home with follow-up with PCP. I plan on doing so. I discussed the plan of care with the patient and her daughter and they voiced understanding and agreement. Angel Puckett M.D. #[id number] - Results/Orders Results/Orders: EXAM DESCRIPTION: Chest,1 View CLINICAL HISTORY: 79 years Female bradycardia COMPARISON: March 10, 2019. TECHNIQUE: AP view of the chest was obtained. FINDINGS: Cardiac silhouette is enlarged. Central vessels are indistinct. Patchy airspace opacities lower lungs bilaterally left greater than right. No pleural effusion on right. Suspected small pleural effusion on left. No pneumothorax. IMPRESSION: Enlarged heart with mild central congestion. Infiltrate and atelectatic change infrahilar regions bilaterally left greater than right. Suspected small left pleural effusion. Electronically signed by: Pebbles Arechiga MD 07/04/2019 5:32 PM CDT EKG performed 04 July 2019 at 1624 hrs.: Junctional rhythm at 60 bpm, left axis deviation, nonspecific T wave changes, abnormal EKG. 07/04/19 16:51 Sodium Chloride 0.9% (Flush) [Saline Flush Syringe] 3 ml IV PRN PRN 07/04/19 17:00 EKG STAT Laboratory Results - last 24 hr 07/04/19 07/04/19 07/04/19 16:35 17:00 17:00 WBC 10.7 RBC 4.14 L Hgb 10.8 L Hct 33.5 L MCV 80.9 L MCH 26.2 L MCHC 32.3 L RDW 16.0 H Plt Count 224 MPV 9.1 Absolute Neuts (auto) 8.40 H Absolute Lymphs (auto) 1.20 Absolute Monos (auto) 0.80 Absolute Eos (auto) 0.10 Absolute Basos (auto) 0.10 Neutrophils % 78.9 H Lymphocytes % 10.9 L Monocytes % 7.6 Eosinophils % 1.4 Basophils % 1.2 PT 13.7 H INR 1.38 H PTT (SP) 51.1 H* Sodium 132 L Potassium 4.4 Chloride 95 L Carbon Dioxide 28 Anion Gap 13.4 BUN 31 H Creatinine 0.87 BUN/Creatinine Ratio 35.6 H Random Glucose 123 H Serum Osmolality 272.4 L Calcium 9.3 Magnesium 2.0 Total Bilirubin 0.6 Direct Bilirubin 0.2 Indirect Bilirubin 0.4 AST 23 ALT 14 Alkaline Phosphatase 37 L Creatine Kinase 74 CK-MB (CK-2) 3.3 CK-MB (CK-2) % Not Reportable Troponin I 0.02 B-Natriuretic Peptide 569.0 H* Serum Total Protein 6.9 Albumin 3.8 Urine Color Yellow Urine Appearance Clear Urine pH 7.0 Ur Specific [place] 1.020 Urine Protein Negative Urine Glucose (UA) Negative Urine Ketones Negative Urine Blood Negative Urine Nitrite Negative Urine Bilirubin Negative Urine Urobilinogen 0.2 Ur Leukocyte Esterase Negative Urine RBC 0-1 Urine WBC 0-1 Ur Epithelial Cells 0-1 Amorphous Sediment Trace Urine Bacteria 0 Departure - Departure Clinical Impression: Cardiac volume overload, Bradycardia CHF exacerbation Qualifiers: Heart failure type: unspecified Qualified Code(s): I50.9 - Heart failure, unspecified Cardiac dysrhythmia, unspecified Qualifiers: Arrhythmia type: unspecified cardiac arrhythmia Qualified Code(s): I49.9 - Cardiac arrhythmia, unspecified Time of Disposition: 19:33 Disposition: Discharge to Home or Self Care Condition: Good Departure Forms: ED Discharge - Pt. Copy, Patient Portal Self Enrollment Instructions: Heart Failure, Adult (DC), Bradycardia (DC), Arrhythmias (DC) Diet: low fat, low cholesterol, low salt diet Activity: increase activity as tolerated Referrals: Frantz Kinsey MD [Primary Care Provider] - 1-5 Days Home Medications: Ambulatory Orders Apoaequorin [Prevagen Extra Strength] 10 mg PO DAILY 07/04/19 Benazepril HCl [Lotensin] 20 mg PO DAILY 07/04/19 Cholecalciferol [Vitamin D3] 1,000 unit PO DAILY 07/04/19 Dabigatran Etexilate Mesylate [Pradaxa] 150 mg PO BID 07/04/19 Furosemide [Lasix] 40 mg PO DAILY 07/04/19 Ibuprofen 400 mg PO Q6H PRN 07/04/19 Levothyroxine Sodium 125 mcg PO DAILY 07/04/19 Metolazone 10 mg PO DAILY 07/04/19 Metoprolol Succinate [Metoprolol Succinate ER] 25 mg PO BID 07/04/19 Nifedipine [Procardia Xl] 60 mg PO DAILY 07/04/19 Polyethylene Glycol 3350 [Miralax] 17 gm PO DAILY 07/04/19 Pomegranate (Punica Granatum) [Pomegranate Extract] 250 mg PO DAILY 07/04/19 Potassium Gluconate 550 mg PO DAILY 07/04/19 Probiotic Product [Probiotic] 1 tab PO DAILY 07/04/19
--- NOTE | 2019-07-04 17:33 | RAD ---
EXAM DESCRIPTION: Chest,1 View CLINICAL HISTORY: 79 years Female bradycardia COMPARISON: March 10, 2019. TECHNIQUE: AP view of the chest was obtained. FINDINGS: Cardiac silhouette is enlarged. Central vessels are indistinct. Patchy airspace opacities lower lungs bilaterally left greater than right. No pleural effusion on right. Suspected small pleural effusion on left. No pneumothorax. IMPRESSION: Enlarged heart with mild central congestion. Infiltrate and atelectatic change infrahilar regions bilaterally left greater than right. Suspected small left pleural effusion. Electronically signed by: Pebbles Arechiga MD 07/04/2019 5:32 PM CDT
[2019-07-04 19:20] VITALS: BP 120/70; O2SAT 98
== END 2019-07-04 19:50 | disposition home or self-care (01) ==
LOC: ER 16:07
DX: I50.9 Heart failure, unspecified (principal); I49.9 Cardiac arrhythmia, unspecified; I10 Essential (primary) hypertension; E11.9 Type 2 diabetes mellitus without complications

== ENCOUNTER → 2019-07-06 | Outpatient (CLI) | payer MEDICARE | LOC: BFHH 14:42 | PROVIDERS: ATTEND Family Medicine | DX: I10 Essential (primary) hypertension (principal); I48.91 Unspecified atrial fibrillation; R22.43 Localized swelling, mass and lump, lower limb, bilateral; I50.9 Heart failure, unspecified ==

== ENCOUNTER → 2019-07-17 | Outpatient (CLI) | payer MEDICARE | LOC: BFHH 13:55 | PROVIDERS: ATTEND Family Medicine | DX: E03.9 Hypothyroidism, unspecified (principal); I48.91 Unspecified atrial fibrillation; R53.1 Weakness; R22.43 Localized swelling, mass and lump, lower limb, bilateral ==

== ENCOUNTER → 2019-07-27 | Outpatient (CLI) | payer MEDICARE | LOC: BFHH 17:39 | PROVIDERS: ATTEND Family Medicine | DX: I48.91 Unspecified atrial fibrillation (principal); I10 Essential (primary) hypertension; E03.9 Hypothyroidism, unspecified ==

== ENCOUNTER → 2019-08-18 | Outpatient (CLI) | payer MEDICARE | LOC: BFHH 13:02 | PROVIDERS: ATTEND Family Medicine | DX: I48.91 Unspecified atrial fibrillation (principal); R22.43 Localized swelling, mass and lump, lower limb, bilateral; R53.1 Weakness ==

== ENCOUNTER → 2019-09-12 | Outpatient (CLI) | payer MEDICARE | LOC: BFHH 14:44 | PROVIDERS: ATTEND Family Medicine | DX: I11.0 Hypertensive heart disease with heart failure (principal) ==

== ENCOUNTER → 2019-10-11 | Outpatient (CLI) | payer MEDICARE | LOC: BFHH 09:32 | PROVIDERS: ATTEND Family Medicine | DX: I11.0 Hypertensive heart disease with heart failure (principal); I50.43 Acute on chronic combined systolic (congestive) and diastolic (congestive) heart failure; I48.91 Unspecified atrial fibrillation; E03.9 Hypothyroidism, unspecified; M17.0 Bilateral primary osteoarthritis of knee; E66.01 Morbid (severe) obesity due to excess calories; Z79.01 Long term (current) use of anticoagulants ==

== ENCOUNTER → 2019-11-06 | Outpatient (CLI) | payer MEDICARE | END | disposition home or self-care (01) | LOC: BFHH 11:32 | PROVIDERS: ATTEND Family Medicine | DX: I48.91 Unspecified atrial fibrillation (principal); I11.0 Hypertensive heart disease with heart failure; I50.42 Chronic combined systolic (congestive) and diastolic (congestive) heart failure; E66.01 Morbid (severe) obesity due to excess calories ==

== ENCOUNTER → 2019-12-04 | Outpatient (CLI) | payer MEDICARE | LOC: BFHH 11:09 | PROVIDERS: ATTEND Family Medicine | DX: I11.0 Hypertensive heart disease with heart failure (principal); I50.42 Chronic combined systolic (congestive) and diastolic (congestive) heart failure; I48.91 Unspecified atrial fibrillation; E66.01 Morbid (severe) obesity due to excess calories ==

== ENCOUNTER → 2020-01-08 | Outpatient (CLI) | payer MEDICARE | LOC: BFHH 12:42 | PROVIDERS: ATTEND Family Medicine | DX: I11.0 Hypertensive heart disease with heart failure (principal); I50.42 Chronic combined systolic (congestive) and diastolic (congestive) heart failure; I48.91 Unspecified atrial fibrillation; E66.01 Morbid (severe) obesity due to excess calories ==

== ENCOUNTER → 2020-02-21 | Outpatient (CLI) | payer MEDICARE | LOC: BFHH 09:49 | PROVIDERS: ATTEND Family Medicine | DX: I11.0 Hypertensive heart disease with heart failure (principal); I50.42 Chronic combined systolic (congestive) and diastolic (congestive) heart failure; I48.91 Unspecified atrial fibrillation; E66.01 Morbid (severe) obesity due to excess calories; Z68.41 Body mass index [BMI] 40.0-44.9, adult ==